=== PATIENT | female | born 2000 | race Caucasian/White ===

== ENCOUNTER 2025-06-02 10:04 | Emergency (ER) | payer OTHER ==
[~2025-06-02] VITALS: Ht 165.1 cm; Wt 122.5 kg
[2025-06-02] MEDS ORDERED: Acetaminophen/Oxycodone 5 MG/325 MG TABLET PO ONE (10:25)
[2025-06-02] MEDS ORDERED: MELOXICAM15 MG PO (10:48)
[2025-06-02] MEDS ORDERED: Acetaminophen/Oxycodone 5 MG/325 MG TABLET ONE (11:03)
== END 2025-06-02 10:59 | disposition home or self-care (01) ==
LOC: ED 10:04
DX: M25.561 Pain in right knee (principal); Z91.041 Radiographic dye allergy status